=== PATIENT | male | born 1935 | race Caucasian/White ===

== ENCOUNTER 2018-01-03 22:18 | Emergency (ER) | payer OTHER, SELFPAY ==
[2018-01-03 22:28] VITALS: BP 147/79; PULSE 97; RESP 22; TEMP 36.3; O2SAT 97; BMI 33.3
[2018-01-03 22:30] VITALS: BP 122/70; PULSE 86; RESP 19; O2SAT 97
--- NOTE | 2018-01-03 22:33 | DI.RAD.S_ITS ---
PROCEDURE: XR CHEST 1V INDICATIONS: chest pain TECHNIQUE: One view of the chest was acquired. COMPARISON: None. FINDINGS: Surgical changes and devices: None. Lungs and pleura: Streaky opacity is noted in the lingula. Coarsened basilar opacities are present. Mediastinum: Mediastinal contours appear normal. Heart size is normal. Bones and chest wall: No suspicious bony lesions. Overlying soft tissues appear unremarkable. IMPRESSION: Streaky lingula opacity likely atelectasis. Coarsened basilar opacities are nonspecific and could represent dependent change, edema or developing airspace disease. Dictated by: Naheed Sierra M.D. on 01/04/2018 at 7:57 Approved by: Naheed Sierra M.D. on 01/04/2018 at 7:57
[2018-01-03 22:49] LABS: Add Manual Diff / Slide Review NO; Basophils Percent Auto 0.5 % (0-2); Eosinophils Percent Auto 3.7 % (2-4); Hematocrit 40.5 % (41-53); Hemoglobin 14.2 g/dL (13.5-17.5); Lymphocytes Percent Auto 3.9 % (25-40); Mean Corpuscular Hemoglobin 32.4 PG (26-34); Mean Corpuscular Volume 92.6 fL (80-100); Monocytes Percent Auto 7.6 % (3-14); Neutrophils Absolute Auto 7200 /uL (3000-5900); Neutrophils Percent Auto 84.3 % (50-75); Platelet Count 164 X10^3/uL (150-400); Red Blood Cell Count 4.37 X10^6/uL (4.5-5.9); Red Cell Distribution Width 14.1 % (11.6-14.8); White Blood Cell Count 8.5 X10^3/uL (4.5-11.0)
[2018-01-03 22:50] VITALS: BP 130/59; PULSE 81
[2018-01-03] MEDS: NITROGLYCERIN 0.4 MG SL TAB SL (22:50)
[2018-01-03] MEDS: ASPIRIN 81 MG TAB 324 MG PO (22:50)
[2018-01-03] MEDS: SODIUM CHLORIDE 0.9% 1,000 ML 150 ML IV (22:54)
[2018-01-03 22:55] LABS: INR 1.4 (0.9-1.3); Prothrombin Time 15.7 SECONDS (10.1-12.7)
[2018-01-03 22:56] VITALS: BP 117/54; PULSE 95; RESP 18; O2SAT 96
[2018-01-03 22:57] LABS: PTT Partial Thromboplastin Tim 31 SECONDS (26.4-36.2)
[2018-01-03 23:00] LABS: Alanine Aminotransferase 37 IU/L (21-72); Albumin 4.4 g/dL (3.5-5.0); Albumin Globulin Ratio 1.5 (1.0-2.8); Alkaline Phosphatase 66 U/L (38-126); Aspartate Aminotransferase 42 IU/L (17-59); BUN Creatinine Ratio 31.3 (6-22); Bilirubin Total 0.8 mg/dL (0.2-1.3); Blood Urea Nitrogen 47 mg/dL (9-20); Calcium 9.5 mg/dL (8.4-10.2); Carbon Dioxide 28 mmol/L (22-32); Chloride 101 mmol/L (98-107); Creatine Kinase 516 U/L (55-170); Globulin 2.9 g/dL (1.7-4.1); Glucose 130 mg/dL (80-110); HEMOLYSIS < 15 (0-50); Lipase 285 U/L (23-300); Potassium 3.8 mmol/L (3.4-5.1); Sodium 142 mmol/L (137-145); Total Protein 7.3 g/dL (6.3-8.2)
[2018-01-03 23:11] LABS: Troponin I 0.026 ng/mL (0.01-0.034)
[2018-01-03 23:15] LABS: CKMB % Relative Index 1.3 % (1.5-5.0); Creatine Kinase MB 6.72 ng/mL (<2.37)
[2018-01-03 23:30] VITALS: BP 96/64; PULSE 70; RESP 21; O2SAT 98
--- NOTE | 2018-01-03 23:40 | ED_ITS ---
HPI - Chest Pain General Chief Complaint: Chest Pain Stated Complaint: CHEST PAIN Time Seen by Provider: 01/03/18 22:55 Source: patient Mode of arrival: ambulatory Limitations: no limitations History of Present Illness HPI narrative: this is an 82-year-old male who comes to the emergency department with complaint of chest pain. He points to the epigastric region. He states that it started about 9 o'clock this evening. Patient denies any shortness of breath. He denies any worsening with exertion. He denies any fevers, no cough cold or congestion. No nausea or vomiting no GI or urinary symptoms. He states he has a history of atrial fibrillation and is on aspirin and Xarelto. He also takes medication for blood pressure and cholesterol. He did use to take medication for heartburn or reflux and stopped that a couple years ago. Patient had a cardiac catheterization 2 years ago after evaluation for his AFib which she states was negative and they told him his arteries were clean he also had a stress test 2 weeks which he states was negative. Yesterday he had a nosebleed from the right side which was seen at an emergency department any had a rhino rocket placed and was told to leave it in place for 5 days and given antibiotics. Patient states he had some mild oozing today but has stopped prior to arrival in the ED. Related Data Home Medications Medication Instructions Recorded Confirmed aspirin 81 mg PO DAILY 01/03/18 01/03/18 cyclobenzaprine 5 mg PO BID 01/03/18 01/03/18 fluticasone [Flovent HFA] 2 puff INHALATION Q12H 01/03/18 01/03/18 gabapentin 300 mg PO BID 01/03/18 01/03/18 hydrochlorothiazide 25 mg PO DAILY 01/03/18 01/03/18 rivaroxaban [Xarelto] 20 mg PO DAILY 01/03/18 01/03/18 rosuvastatin 10 mg PO DAILY 01/03/18 01/03/18 valsartan [Diovan] 160 mg PO BID 01/03/18 01/03/18 Previous Rx's Medication Instructions Recorded omeprazole 20 mg PO DAILY #20 cap 01/04/18 Allergies Allergy/AdvReac Type Severity Reaction Status Date / Time ibuprofen [From Advil] Allergy Verified 01/03/18 22:33 Review of Systems Review of Systems All systems reviewed & are unremarkable except as noted in HPI and below Constitutional Denies fever(s) ENT Ears, Nose, Mouth, and Throat: Reports other ( nose bleed) Cardiovascular Reports chest pain, Denies chest pain at rest, Denies chest pain with activity, Denies diaphoresis, Denies syncope, Denies rapid heart rate, Denies edema, Denies irregular heart rhythm, Denies leg edema, Denies lightheadedness, Denies radiating jaw, neck or arm pain, Denies palpitations, Denies dyspnea, Denies dyspnea on exertion and Denies orthopnea Respiratory Denies chest congestion, Denies cough, Denies hemoptysis, Denies dyspnea and Denies dyspnea on exertion Gastrointestinal Gastrointestinal: Denies abdominal pain, Denies change in bowel habits, Denies diarrhea, Denies nausea and Denies vomiting Genitourinary Denies difficulty urinating Musculoskeletal Reports muscle weakness ( Chronic foot drop on right) Integumentary/Breasts Denies rash Neurologic Denies syncope Endocrine Denies palpitations PFSH Medical History Atrial fibrillation (Acute) Dyslipidemia (Acute) Hypertension (Acute) Surgical History History of back surgery (Acute) History of cardiac cath (Acute) Social History marital status: details: Lives in [place]. Smoking Status: Former smoker Exam Narrative Exam Narrative: GENERAL: Alert and oriented x three, Nourished, well- appearing male in no acute distress. HEENT: Head normocephalic, atraumatic, EOMI, pupils reactive, patient has a rhino rocket in place in the right naris,face symmetric, moist mucous membranes NECK: Supple, full range of motion CARDIOVASCULAR: Regular rate and rhythm without murmurs, rubs or gallops. Patient has mild tenderness at the distal sternum over the xiphoid / epigastric region. No rashes noted. RESPIRATORY: Breath sounds equal bilaterally, no wheezes rales or rhonchi. ABDOMEN: Soft, nontender. Normoactive bowel sounds all 4 quadrants. No guarding or rebound, rigidity, no mass : No CVA tenderness EXTREMITIES: Normal range of motion, no clubbing or edema. Neurovascularly intact NEUROLOGICAL: Cranial nerves II through XII grossly intact. Moving all extremities SKIN: Warm, dry, no petechiae, no rashes or lesions. Initial Vital Signs Initial Vital Signs: Vital Signs Temperature 97.3 F L 01/03/18 22:28 Pulse Rate 97 H 01/03/18 22:28 Respiratory Rate 22 01/03/18 22:28 Blood Pressure 147/79 H 01/03/18 22:28 Pulse Oximetry 97 01/03/18 22:28 Course Orders Ordered: ED Orders 01/03/18 22:23 EKG-12 Lead Stat 01/03/18 22:33 XR chest 1V Stat EKG-12 Lead Stat 01/03/18 22:35 B Type Natriuretic Peptide Stat Complete Blood Count AUTO DIFF Stat Comprehensive Metabolic Panel Stat Lipase Stat Partial Thromboplastin Time Stat Prothrombin Time INR Stat Troponin & CK Cardiac Panel Stat 01/04/18 00:16 EKG-12 Lead Stat 01/04/18 00:35 Troponin I Stat Discontinued Medications Aspirin (Aspirin Chew) 324 mg PO NOW ONE Stop: 01/03/18 22:33 Last Admin: 01/03/18 22:50 Dose: 324 mg Sodium Chloride (Normal Saline 0.9%) 1,000 mls @ 150 mls/hr IV CONT JENNIFER Last Infusion: 01/04/18 01:38 Dose: 0 mls/hr Admin: 01/03/18 22:54 Dose: 150 mls/hr Nitroglycerin (Nitrostat) 0.4 mg SL [id number] PRN PRN Reason: Chest Pain Last Admin: 01/03/18 22:50 Dose: 0.4 mg Pantoprazole Sodium (Protonix) 40 mg IV NOW ONE Stop: 01/04/18 00:16 Last Admin: 01/04/18 00:23 Dose: 40 mg Vital Signs - 8 hr 01/03/18 22:28 01/03/18 22:30 01/03/18 22:50 Temperature 97.3 F L Pulse Rate 97 H 86 81 Respiratory Rate 22 19 Blood Pressure 147/79 H 130/59 L Blood Pressure [Right Arm] 122/70 Pulse Oximetry 97 97 01/03/18 22:56 01/03/18 23:30 01/04/18 00:30 Temperature Pulse Rate 95 H 70 66 Respiratory Rate 18 21 21 Blood Pressure Blood Pressure [Right Arm] 117/54 L 96/64 117/69 Pulse Oximetry 96 98 97 01/04/18 01:49 Temperature 98 F Pulse Rate 65 Respiratory Rate 18 Blood Pressure 121/69 Blood Pressure [Right Arm] Pulse Oximetry 98 MDM - Chest Pain Lab Data Attestation: I reviewed the patient's lab results. Result diagrams: 01/03/18 22:35 01/03/18 22:35 Lab Results 01/03/18 01/03/18 01/03/18 Range/Units 22:35 22:35 22:35 WBC 8.5 (4.5-11.0) X10^3/uL RBC 4.37 L (4.5-5.9) X10^6/uL Hgb 14.2 (13.5-17.5) g/dL Hct 40.5 L (41-53) % MCV 92.6 (80-100) fL MCH 32.4 (26-34) PG MCHC 35.0 (30-36) % RDW 14.1 (11.6-14.8) % Plt Count 164 (150-400) X10^3/uL Neut % (Auto) 84.3 H (50-75) % Lymph % (Auto) 3.9 L (25-40) % [place] % (Auto) 7.6 (3-14) % Eos % (Auto) 3.7 (2-4) % Baso % (Auto) 0.5 (0-2) % Neut # (Auto) 7200 H (6287-5141) /uL PT 15.7 H (10.1-12.7) SECONDS INR 1.4 H (0.9-1.3) APTT 31 (26.4-36.2) SECONDS Sodium (137-145) mmol/L Potassium (3.4-5.1) mmol/L Chloride (98-107) mmol/L Carbon Dioxide (22-32) mmol/L BUN (9-20) mg/dL Creatinine (0.66-1.25) mg/dL Estimated GFR (>60) mL/min BUN/Creatinine Ratio (6-22) Glucose (80-110) mg/dL Calcium (8.4-10.2) mg/dL Total Bilirubin (0.2-1.3) mg/dL AST (17-59) IU/L ALT (21-72) IU/L Alkaline Phosphatase (38-126) U/L Total Creatine Kinase (55-170) U/L CK-MB (CK-2) (<2.37) ng/mL CK-MB (CK-2) Rel Index (1.5-5.0) % Troponin I (0.01-0.034) ng/mL B-Natriuretic Peptide 210.0 H (<100) Total Protein (6.3-8.2) g/dL Albumin (3.5-5.0) g/dL Globulin (1.7-4.1) g/dL Albumin/Globulin Ratio (1.0-2.8) Lipase (23-300) U/L 01/03/18 01/04/18 Range/Units 22:35 00:35 WBC (4.5-11.0) X10^3/uL RBC (4.5-5.9) X10^6/uL Hgb (13.5-17.5) g/dL Hct (41-53) % MCV (80-100) fL MCH (26-34) PG MCHC (30-36) % RDW (11.6-14.8) % Plt Count (150-400) X10^3/uL Neut % (Auto) (50-75) % Lymph % (Auto) (25-40) % [place] % (Auto) (3-14) % Eos % (Auto) (2-4) % Baso % (Auto) (0-2) % Neut # (Auto) (7277-6550) /uL PT (10.1-12.7) SECONDS INR (0.9-1.3) APTT (26.4-36.2) SECONDS Sodium 142 (137-145) mmol/L Potassium 3.8 (3.4-5.1) mmol/L Chloride 101 (98-107) mmol/L Carbon Dioxide 28 (22-32) mmol/L BUN 47 H (9-20) mg/dL Creatinine 1.50 H (0.66-1.25) mg/dL Estimated GFR 45.0 L (>60) mL/min BUN/Creatinine Ratio 31.3 H (6-22) Glucose 130 H (80-110) mg/dL Calcium 9.5 (8.4-10.2) mg/dL Total Bilirubin 0.8 (0.2-1.3) mg/dL AST 42 (17-59) IU/L ALT 37 (21-72) IU/L Alkaline Phosphatase 66 (38-126) U/L Total Creatine Kinase 516 H (55-170) U/L CK-MB (CK-2) 6.72 H (<2.37) ng/mL CK-MB (CK-2) Rel Index 1.3 L (1.5-5.0) % Troponin I 0.026 0.026 (0.01-0.034) ng/mL B-Natriuretic Peptide (<100) Total Protein 7.3 (6.3-8.2) g/dL Albumin 4.4 (3.5-5.0) g/dL Globulin 2.9 (1.7-4.1) g/dL Albumin/Globulin Ratio 1.5 (1.0-2.8) Lipase 285 (23-300) U/L Imaging Data Chest x-ray: Attestation: I personally reviewed and interpreted this imaging study as follows: My impression: No acute process. Patient has linear opacification that appears to be possibly scarring. There are no prior chest x-rays for comparison. No infiltrate or atelectasis is noted. No mediastinal widening. No fractures. No pneumothorax. ECG Data Attestation: I personally reviewed and interpreted this ECG as follows: Interpretation: EKG#1, atrial fibrillation with a rate of 92. QRS of 93 and QTC of 407. Patient has appears to be some ST depression in the 5 through V6 as well as T-wave inversion in 1 and aVL. No elevation is noted. Patient has prior EKGs that he brought with him from 12/16/2015 as well as 04/05/2015 which showed the [address] ST changes in the V4 through V6 leads as well as in 1 and aVL with no other ST elevations. EKG 2. Appears consistent with some segment changes. Patient continues to be in AFib with a rate of 68, QRS of 91 and QTC of 417. One in aVL have T-wave inversion as well as ST changes in V4 through V6. MDM Narrative Medical decision making narrative: Patient's symptoms are somewhat concerning for cardiac causes. He states that he can reproduce the pain by pushing on it and later during his stay feels that it is similar to when he had indigestion or heartburn. He did stop his omeprazole couple years ago. Patient and I did discussed doing cardiac observation but elected to do repeat 2 hr troponin and EKG. Patient had his own prior EKGs with for comparison which do show the ST changes are similar to his old EKGs from several years ago. Patient's troponin was negative x2. His CK / CK-MB were elevated. Patient symptoms did improve with Protonix. Patient also had a cardiac catheterization 2 years prior which he was told had clean coronaries and he had a stress test 2 weeks prior to today which was also negative. He does take aspirin daily as well as Xarelto for his AFib. he is traveling and we did discuss that this would make follow- up difficult. He is requesting rx for omeprazole which he used to take. Discharge Plan Departure Patient Disposition: Home Clinical Impression: Chest pain Discharge Date/Time: 01/04/18 01:38 Interventions: ED Discharge Assessment Last Done: 01/04/18 01:49 Instructions: DI for Atypical Chest Pain Activity Restrictions/Additional Instructions: Follow up with your primary care physician for recheck. Continue home medications as prescribed. General Return Instructions : Return to the Emergency Department for any new or worsening symptoms. Return to the Emergency Department for fevers, recurrent worsening chest pain, severe abdominal pain, chest pain, shortness of breath, passing out, persistent vomiting, worrisome rash, or any other new or worsening symptoms. Prescriptions: New omeprazole 20 mg capsule,delayed release(DR/EC) 20 mg PO DAILY Qty: 20 RF: 0 No Action gabapentin 300 mg Capsule 300 mg PO BID RF: 0 aspirin 81 mg Tablet,Chewable 81 mg PO DAILY RF: 0 fluticasone [Flovent HFA] 220 mcg/actuation Hfa Aerosol Inhaler 2 puff INHALATION Q12H RF: 0 hydrochlorothiazide 25 mg Tablet 25 mg PO DAILY RF: 0 valsartan [Diovan] 160 mg Tablet 160 mg PO BID RF: 0 cyclobenzaprine 5 mg Tablet 5 mg PO BID RF: 0 rosuvastatin 10 mg Tablet 10 mg PO DAILY RF: 0 rivaroxaban [Xarelto] 20 mg Tablet 20 mg PO DAILY RF: 0
[2018-01-04] MEDS: PANTOPRAZOLE 40 MG VIAL IV (00:23)
[2018-01-04 00:30] VITALS: BP 117/69; PULSE 66; RESP 21; O2SAT 97
[2018-01-04 01:06] LABS: Troponin I 0.026 ng/mL (0.01-0.034)
[2018-01-04 01:49] VITALS: BP 121/69; PULSE 65; RESP 18; TEMP 36.6; O2SAT 98
== END 2018-01-04 01:38 | disposition home or self-care (01) ==
PROVIDERS: Emergency Provider Emergency Medicine
DX: R07.89 Other chest pain (principal)
CPT/HCPCS: 36415; 36591; 71045; 80053; 82550; 82553; 83690; 83880; 84484; 85025; 85610; 85730; 93005; 93010; 96361; 96374; 99283; 99285; C9113